=== PATIENT | male | born 1980 | race Caucasian/White ===

== ENCOUNTER → 2021-02-09 | Outpatient (CLI) | payer OTHER | LOC: LAB 11:39 | PROVIDERS: ATTEND Internal Medicine Cardiovascular Disease | DX: R07.9 Chest pain, unspecified (principal) | CPT/HCPCS: 36415; 85379 ==

== ENCOUNTER → 2021-02-21 | Outpatient (CLI) | payer OTHER ==
--- NOTE | 2021-02-21 18:08 | CARD ---
MR#: [id number] Date of Study: 02/21/2021 Ordering Physician: MORGAN LEE, Referring Physician: MORGAN LEE, Tech: Cherise Camara [facility] APPROVED REPORT EXAM: Two-dimensional and M-mode echocardiogram with Doppler and color Doppler. Other Information Quality : AverageHR: 44bpm Rhythm : NSR INDICATION Chest Pain 2D DIMENSIONS RVDd3.6 (2.9-3.5cm)Left Atrium(2D)4.1 (1.6-4.0cm) IVSd1.1 (0.7-1.1cm)Aortic Root(2D)2.9 (2.0-3.7cm) LVDd4.8 (3.9-5.9cm)LVOT Diameter2.2 (1.8-2.4cm) PWd1.0 (0.7-1.1cm)LVDs3.2 (2.5-4.0cm) FS (%) 34.1 %SV68.8 ml Aortic Valve AoV Peak Manish.122.7cm/sAoV VTI27.8cm AO Peak GR.6.0mmHgLVOT Peak Manish.101.5cm/s AO Mean GR.3mmHgAVA (VMAX)3.26cm2 Mitral Valve MV E Mvjwonyp14.6cm/sMV DECEL REUF877rd MV A Gcbjucbs26.8cm/sE/A Ratio1.2 Tricuspid Valve TR P. Kivuhexe715aa/sTR Peak Gr.15mmHg LEFT VENTRICLE The left ventricle is normal size. There is borderline concentric left ventricular hypertrophy. The l eft ventricular systolic function is normal and the ejection fraction is within normal range. LV eje ction fraction of 55 to 60%. There is normal LV segmental wall motion. The left ventricular diastoli c function and filling is normal for age. RIGHT VENTRICLE The right ventricle is normal size. There is normal right ventricular wall thickness. The right ventr icular systolic function is normal. ATRIA The left atrium size is normal. The right atrium size is normal. The interatrial septum is intact wit h no evidence for an atrial septal defect or patent foramen ovale as noted on 2-D or Doppler imaging. AORTIC VALVE The aortic valve is normal in structure and function. Doppler and Color Flow revealed no significant aortic regurgitation. There is no significant aortic valvular stenosis. MITRAL VALVE The mitral valve is normal in structure and function. There is no evidence of mitral valve prolapse. There is no mitral valve stenosis. Doppler and Color-flow revealed mild mitral regurgitation. TRICUSPID VALVE The tricuspid valve is normal in structure and function. Doppler and Color Flow revealed mild tricusp id regurgitation. Estimated PAP 20 mmHg. There is no tricuspid valve stenosis. PULMONIC VALVE The pulmonary valve is normal in structure and function. Doppler and Color Flow revealed no pulmonic valvular regurgitation. GREAT VESSELS The aortic root is normal in size. The ascending aorta is normal in size. The IVC is normal in size a nd collapses >50% with inspiration. PERICARDIAL EFFUSION There is no evidence of significant pericardial effusion. Critical Notification Critical Value: No <Conclusion> The left ventricle is normal size. The left ventricular systolic function is normal and the ejection fraction is within normal range. LV ejection fraction of 55 to 60%. There is normal LV segmental wall motion. There is borderline concentric left ventricular hypertrophy. Doppler and Color Flow revealed no significant aortic regurgitation. There is no significant aortic valvular stenosis. Doppler and Color-flow revealed mild mitral regurgitation. Doppler and Color Flow revealed mild tricuspid regurgitation. Estimated PAP 20 mmHg. Signed by : Morgan Lee MD Electronically Approved : 02/21/2021 18:07:51
--- NOTE | 2021-02-21 18:14 | RAD ---
MR#: [id number] Date of Study: 02/21/2021 Ordering Physician: JAKE LEE, Referring Physician: KELSI DE JESUS Tech: MAJOR Bishop, ARRT (R) (N) APPROVED REPORT Test Type: Exercise Stress Nurse/Tech: Mariel Chan R.N. Test Indications: chest pain Cardiac History: none Medications: see ehr Medical History: see ehr Resting ECG: sr Resting Heart Rate: 51 bpm Resting Blood Pressure: 111/68mmHg Pretest Chest Pain: No chest pain Nurse/Tech Notes lungs cta, heart tones regular Consent: The procedure was explained to the patient in lay terms. Informed consent was witnessed. Ian eout was entered into [employer]. History and Stress Test performed by RT Dick (Leidy) (N) Stress Symptoms No chest pain or symptoms. POST EXERCISE Reason for Termination: Reached target heart rate Target HR: Yes Max HR: 168 bpm 93% of Maximum Predicted HR: 180 bpm Exercise duration: 11:57 min:sec, 4 Stage Exercise capacity: 13.4METs Max Blood Pressure: 163/86mmHg Blood Pressure response to exercise: Normal blood pressure response during stress. Heart Rate response to exercise: normal Chest Pain: No. Arrhythmia: No. INTERPRETATION Stress EKG Conclusion: The resting EKG shows a sinus rhythm with mild nonspecific T wave changes. The stress EKG shows no significant change from baseline. No EKG evidence of stress-induced ischemia. Imaging Protocol IMAGE PROTOCOL: Rest Tc-99m/stress Tc-99m 1 day Rest: Stress: Viability: Radiopharm.Tc99m IpupxalhsWy67z Sestamibi Eumr75eNx 31.4mCi Img Date 02/21/2021 02/21/2021 Inj-Img Mqag25wbl. 60min. Rest Admin Site:IV - Right AntecubitalAdministrator:MAJOR Bishop, ARRT (R)(N) Stress Admin Site: IV - Right AntecubitalAdministrator: RT Kana Jennings)(N) STRESS DATA End Diast. Vol.135.0mlAv. Heart Rate61.0bpm End Syst. Vol.37.0mlCO Index BSA0.0L/min Myocardial Bxwz212.0gEject. Aucndmnr95.0% Stress Rates Pk. Fill Rate3.10EDV/secLVtime Pk. Fill 145.85msec Pk. Empty Rate3.17ESV/secLVtime Pk. Exubf338.07msec 1/3 Pk. Fill1.99EDV/sec Stress Scores Regional WT0.00Summed WT0.00 Regional WM0.00Summed WM0.00 LV Perfusion The stress scans showed no significant defects. The rest scans showed no significant defects. Nuclear imaging shows no reversible ischemia or infarct. Wall Motion Normal left ventricular systolic function with no regional wall motion abnormalities and an ejection fraction of 69%. LV Perf. Quant 17 Seg. SSS0.00 17 Seg. SRS0.00 17 Seg. SDS0.00 Stress Defect Extent (% LAD)0.00Rest Defect Extent (% LAD)0.00Rev. Defect Extent (% LAD)0.00 Stress Defect Extent (% LCX) 0.00Rest Defect Extent (% LCX)0.00Rev. Defect Extent (% LCX)0.00 Stress Defect Extent (% RCA)0.00Rest Defect Extent (% RCA)0.00Rev. Defect Extent (% RCA)0.00 Stress Defect Extent (% MEAGHAN)0.00Rest Defect Extent (% MEAGHAN)0.00Rev. Defect Extent (% MEAGHAN)0.00 Conclusion 1. Good exercise tolerance with patient walking for 11 minutes and 57 seconds on a Harpal protocol. 2. No chest pain with exertion. 3. No EKG evidence of stress-induced ischemia. 4. Nuclear imaging shows no reversible ischemia or infarct. 5. Normal left ventricular systolic function with ejection fraction of 69%. 6. Low risk treadmill nuclear stress test. Signed by : Jake Lee MD Electronically Approved : 02/21/2021 18:14:16
== END ==
LOC: ECHO 08:21
PROVIDERS: ATTEND Internal Medicine Cardiovascular Disease
DX: I08.1 Rheumatic disorders of both mitral and tricuspid valves (principal); R07.9 Chest pain, unspecified; R01.1 Cardiac murmur, unspecified
CPT/HCPCS: 78452; 93017; 93306; A9500